=== PATIENT | female | born 1965 | race American Indian/Alaskan Native ===

== ENCOUNTER 2016-10-30 14:46 | Emergency (ER) | payer SELFPAY ==
[2016-10-30] MEDS ORDERED: LEVAQUIN ONE (16:59)
== END 2016-10-30 15:35 | disposition left against medical advice (07) ==
LOC: ED 14:46
DX: R56.9 Unspecified convulsions (principal); Z53.21 Procedure and treatment not carried out due to patient leaving prior to being seen by health care provider